=== PATIENT | male | born 1935 | race Caucasian/White ===

== ENCOUNTER 2017-09-12 20:22 | Emergency (ER) | payer MEDICARE, BC | END 2017-09-12 23:31 | disposition home or self-care (01) | LOC: D.ER 20:22 | DX: H81.20 Vestibular neuronitis, unspecified ear (principal) ==

== ENCOUNTER → 2021-01-26 08:35 | Outpatient (CLI) | payer MEDICARE, OTHER ==
[2014-08-04 06:16] VITALS: BMI 29.0
== END | disposition home or self-care (01) ==
LOC: D.CT 08:35
PROVIDERS: ATTEND Surgery
DX: R10.2 Pelvic and perineal pain (principal)

== ENCOUNTER → 2021-02-26 11:50 | Outpatient (CLI) | payer MEDICARE, OTHER ==
[2014-08-04 06:16] VITALS: BMI 29.0
== END | disposition home or self-care (01) ==
LOC: D.US 11:00
PROVIDERS: ATTEND Surgery
DX: R10.32 Left lower quadrant pain (principal)